=== PATIENT | female | born 1965 | race Caucasian/White ===

== ENCOUNTER 2016-07-05 19:43 | Inpatient (IN) | payer OTHER ==
[2016-07-05] MEDS ORDERED: Morphine INJ* 4 MG/ML 1 ML SYRINGE IV ONE (21:09)
--- NOTE | 2016-07-05 21:40 | ED ---
emma Valentin Timothy, scribed for German Paul MD on 07/05/16 at 2111 . Lower Extremity - HPI Summary HPI Summary: Lucila Orozco is a 51 yo female presenting to [facility] with 4/10 right hip pain after falling accidentally while walking home. Her right hip is unable to bear weight, and the pain increases with movement. Pt denies any PMHx. - History of Current Complaint Chief Complaint: EDExtremityLower Stated Complaint: FALL/RIGHT HIP PAIN Time Seen by Provider: 07/05/16 21:06 Hx Obtained From: Patient Mechanism Of Injury: Fall From A Standing Position Onset of Pain: Immediate Onset/Duration: Hours Severity Initially: Moderate Severity Currently: Moderate Pain Intensity: 4 Pain Scale Used: 0-10 Numeric Timing: Constant Location: Is Discrete @ - right hip Aggravating Factor(s): Movement, Weight Bearing Alleviating Factor(s): Elevation Able to Bear Weight: No - Allergies/Home Medications Allergies/Adverse Reactions: Allergies Allergy/AdvReac Type Severity Reaction Status Date / Time Sulfa Antibiotics Allergy Rash Verified 03/28/15 10:23 PMH/Surg Hx/FS Hx/Imm Hx Endocrine/Hematology History: Denies: Hx Diabetes, Hx Thyroid Disease Cardiovascular History: Denies: Hx Hypertension Respiratory History: Denies: Hx Asthma, Hx Chronic Obstructive Pulmonary Disease (COPD) GI History: Denies: Hx Ulcer - Cancer History Hx Chemotherapy: No Hx Radiation Therapy: No Infectious Disease History: No Infectious Disease History: Denies: Hx Hepatitis, Hx Human Immunodeficiency Virus (HIV), Traveled Outside the [place] in Last 30 Days - Family History Known Family History: Positive: Cardiac Disease, Hypertension Negative: Diabetes - Social History Alcohol Use: Weekly Hx Substance Use: Yes Substance Use Type: Reports: Marijuana Substance Use Comment - Amount & Last Used: "almost never." Hx Tobacco Use: No Smoking Status (MU): Never Smoked Tobacco Review of Systems Constitutional: Negative Eyes: Negative ENT: Negative Cardiovascular: Negative Respiratory: Negative Gastrointestinal: Negative Genitourinary: Negative Musculoskeletal: Other - right hip pain Skin: Negative Neurological: Negative Psychological: Normal All Other Systems Reviewed And Are Negative: Yes Physical Exam Triage Information Reviewed: Yes Vital Signs On Initial Exam: Initial Vitals Temp Pulse Resp BP Pulse Ox 98.7 F 82 14 113/69 100 07/05/16 19:44 07/05/16 19:44 04/12/17 19:44 07/05/16 19:44 07/05/16 19:44 Vital Signs Reviewed: Yes Appearance: Positive: Well-Appearing, Pain Distress - mild discomfort Skin: Positive: Warm Head/Face: Positive: Normal Head/Face Inspection Eyes: Positive: IKE ENT: Positive: Hearing grossly normal Neck: Positive: Supple Respiratory/Lung Sounds: Positive: Clear to Auscultation, Breath Sounds Present Cardiovascular: Positive: RRR Abdomen Description: Positive: Nontender, Soft Bowel Sounds: Positive: Present Musculoskeletal: Positive: Other - tender rt hip, no deformity, pain with movement Neurological: Positive: Sensory/Motor Intact, Alert, Oriented to Person Place, Time Psychiatric: Positive: Affect/Mood Appropriate Diagnostics - Vital Signs Vital Signs Temp Pulse Resp BP Pulse Ox 07/05/16 19:48 98.7 F 72 14 113/69 100 07/05/16 19:44 98.7 F 82 14 113/69 100 - Laboratory Result Diagrams: 07/05/16 21:45 Lab Statement: Any lab studies that have been ordered have been reviewed, and results considered in the medical decision making process. - Radiology R Hip XR Xray Interpretation: Positive (See Comments) - IMPRESSION: Impacted fracture right femoral neck. Radiology Interpretation Completed By: Radiologist Lower Extremity Course/Dx - Course Assessment/Plan: Lucila Orozco is a 89 yo female presenting to [facility] with 4/ 10 right hip pain S/P tripping and falling at 1945 tonight. In the ED she was given morphine to manage her pain. After review of her right hip X-ray suggesting an impacted fracture of the right femoral neck, and review of her lab work, as well as discussion with Dr. Barton and Dr. Leiva, she will be admitted to [facility] for further treatment. Her CXR is pending at this time. - Diagnoses Provider Diagnoses: Impacted fracture of right hip - Physician Notifications Discussed Care of Patient With: 2135 - Dr. Barton (Orthopedics) - discussed Pt condition, recommends admission of Pt for further treatment. 2138 - Dr. Leiva (hospitalist) - discussed Pt condition, accepts Pt for admission. Instructed by Provider To: Admit As Inpatient Discharge - Discharge Plan Condition: Stable Disposition: ADMITTED TO [facility] Discharge Disposition Comment: admission for further treatment The documentation as recorded by the scribemma brown Timothy accurately reflects the service I personally performed and the decisions made by me, German Paul MD.
[2016-07-05] MEDS ORDERED: Acetaminophen TAB* 325 MG PO PRN (21:42)
[2016-07-05] MEDS ORDERED: Ondansetron INJ* 2 MG/ML VIAL IV PRN (21:43)
[2016-07-05] MEDS ORDERED: Heparin VIAL(*) 5000 UNITS/ML VIAL (FIVE THOUSAND) SUBCUT ONE (21:44)
--- NOTE | 2016-07-05 21:48 | RAD ---
Indication: Right hip injury. 2 views of the right hip and an AP view the pelvis demonstrates an impacted fracture of the right femoral neck. Pelvic ring is intact. IMPRESSION: Impacted fracture right femoral neck.
[2016-07-05 22:09] LABS: BUN/Creatinine Ratio 12.2 (8-20); Calcium 9.6 mg/dL (8.6-10.3); EGFR African American 106.8 (>60); EGFR Non-African American 83.1 (>60); Potassium 3.7 mmol/L (3.5-5.0)
[2016-07-05] MEDS: oxyCODONE/Acetamin 5/325 MG* TAB PO PRN (22:19)
[2016-07-06] MEDS ORDERED: CMCS - Melatonin (NF) 3 MG TAB PO PRN (03:00)
--- NOTE | 2016-07-06 03:00 | HP ---
H&P (Free Text) History and Physical: PCP: Rosa Fowler MD Date/Time of Evaluation: 07/05/20162144 CC: R hip pain s/p mechanical fall HPI: Mrs Orozco is a 51YO healthy female who was walking along a path near her home with her daughter when she rolled her foot and fell taking the full brunt of the impact on her R hip. She had immediate severe pain in the R hip and was unable to stand. Bystanders assisted her back to her home where her neighbor insisted on bringing her to [facility] for evaluation. She denies prodromal symptoms, head injury, and LOC. There was no chest pain, SOB, light- headedness, spinning, or palpitations. Evaluation is notable for a non-displaced R femoral neck FX. Sanjiv Barton MD orthopedic surgery was consulted in ED & requested hospitalist services to admit with him taking charge in the AM. PMedHx Allergies Sulfa Antibiotics Allergy (Verified 03/28/15 10:23) Rash depression Ambulatory Orders Ascorbic Acid [Vitamin C] 1,000 mg PO 03/28/15 Cholecalciferol [Vitamin D] 1,000 unit PO 03/28/15 Cyanocobalamin TAB* [Vitamin B12 TAB*] 500 mcg PO DAILY 03/28/15 Escitalopram (NF) [Lexapro (NF)] 5 mg PO DAILY 03/28/15 Niacin 500 mg PO 03/28/15 [place]-3 Fatty Acids [Fish Oil] 1,000 mg PO 03/28/15 PSurgHx denies SocHx: no tobacco or recreational drugs, 6-7 alcoholic drinks weekly; teaches psychology at [employer]; full code status FamHx: positive for HTN, CAD, CVA ROS: as above, otherwise reviewed and all were negative Constitutional: NAD, normally developed, well-nourished white female vitals: Vital Signs Temp 36.7 C 07/06/16 00:13 Pulse 69 07/06/16 00:13 Resp 18 07/06/16 00:13 BP 115/57 07/06/16 00:13 Pulse Ox 99 07/06/16 00:13 Intake & Output 07/05/16 07/05/16 07/06/16 11:59 23:59 11:59 Weight 62.596 kg HEENM: atraumatic; sclera/conjunctiva: non-icteric/clear; hearing: intact; oropharynx: clear, mucosa moist Neck: soft tissue: non-tender; thyroid: normal Pulmonary: clear to auscultation bilaterally, good aeration, no accessory muscle use CV: RR/RR, normal S1S2, no carotid bruit, no jugular venous distention, 2+ B DP/ PT, no edema Abdominal: soft, non-distended, non-tender, no rebound/guarding/rigidity, normoactive bowel sounds, no hepatosplenomegaly or masses, no costovertebral angle tenderness Musculoskeletal: general: no gross deformity; gait: non-weight bearing RLE 2nd FX Integumental: normal appearance and texture of exposed skin Psychiatric orientation: AA&O to PPS affect: calm mood: pleasant eye contact: good content: reliable responses: timely insight: good Testing: Lab Results 07/05/16 07/05/16 Range/Units 21:45 21:45 INR (Anticoag Therapy) 0.93 (0.89-1.11) Sodium 138 (133-145) mmol/L Potassium 3.7 (3.5-5.0) mmol/L Chloride 103 (101-111) mmol/L Carbon Dioxide 28 (22-32) mmol/L Anion Gap 7 (2-11) mmol/L BUN 9 (6-24) mg/dL Creatinine 0.74 (0.51-0.95) mg/dL Est GFR ( Amer) 106.8 (>60) Est GFR (Non-Af Amer) 83.1 (>60) BUN/Creatinine Ratio 12.2 (8-20) Glucose 117 H (70-100) mg/dL Calcium 9.6 (8.6-10.3) mg/dL ECG, personally reviewed: ordered, pending CXR, personally reviewed: ordere, pending Impression: 51F presenting with R femoral neck FX s/p mechanical fall DIAGNOSIS & PLAN Primary R femoral neck FX s/p mechanical fall : pain control : Sanjiv Barton MD orthopedic surgery consulted by ED, will assume care of patient in AM : recommend DEXA scan of L hip & L-spine as outpatient post-recovery : supportive care Secondary depression : continue escitalopram Admission Rational: inpatient for surgical management of R femoral neck FX DVTp: recommend heparin SQ post-operatively Code Status: full
[2016-07-06] MEDS: Morphine INJ* 4 MG/ML 1 ML SYRINGE IV PRN ×3 (04:06→16:47)
[2016-07-06] MEDS: oxyCODONE/Acetamin 5/325 MG* TAB PO PRN ×3 (06:07→23:44)
[2016-07-06 08:51] LABS: Hematocrit 38 % (35-47); Hemoglobin 12.9 g/dl (12.0-16.0); Mean Corpuscular HGB Conc 34 g/dl (31-36); Mean Corpuscular Hemoglobin 31 pg (27-31); Mean Corpuscular Volume 90 fL (80-97); Mean Platelet Volume 9 um3 (7.4-10.4); Red Cell Distribution Width 13 % (10.5-15); White Blood Count 7.6 10^3/ul (3.5-10.8)
[2016-07-06] MEDS: Citalopram TAB* 10 MG PO SCH (09:43)
--- NOTE | 2016-07-06 11:32 | RAD ---
HISTORY: Permission testing, hip surgery COMPARISONS: None VIEWS:1: Single frontal portable view of the chest at 11:09 AM FINDINGS: LINES AND TUBES: None. CARDIOMEDIASTINAL SILHOUETTE: The cardiomediastinal silhouette is normal for portable technique. PLEURA: The costophrenic angles are sharp. No pleural abnormalities are noted. LUNG PARENCHYMA: The lungs are clear. ABDOMEN: The upper abdomen is clear. There is no subphrenic gas. BONES AND SOFT TISSUES: No bone or soft tissue abnormalities are noted. IMPRESSION: NO ACTIVE CARDIOPULMONARY DISEASE.
[2016-07-06] MEDS ORDERED: ceFAZolin 2 GM PREMIX(*) 2 GM/50 ML BAG IVPB ONE (12:57)
[2016-07-06] MEDS ORDERED: Midazolam* 1 MG/ML 5 ML VIAL (5 MG) ONE (13:00)
[2016-07-06] MEDS ORDERED: Bupivacaine 0.25% EPI 200,000* 30 ML SDV ONE (13:06)
[2016-07-06] MEDS ORDERED: Chloroprocaine 2%* 20 ML VIAL ONE (13:11)
[2016-07-06] MEDS ORDERED: fentaNYL* 50 MCG/ML 5 ML VIAL (250 MCG VIAL) ONE (13:23)
[2016-07-06] MEDS ORDERED: fentaNYL* 50 MCG/ML 2 ML VIAL (100 MCG VIAL) ONE ×3 (13:24→15:24)
[2016-07-06] MEDS ORDERED: Midazolam* 1 MG/ML 2 ML VIAL (2 MG) ONE (13:57)
[2016-07-06] MEDS ORDERED: Propofol* 0 MG/0 ML BTL ONE (14:09)
[2016-07-06] MEDS ORDERED: Propofol* 10 MG/ML 20 ML BTL IV PUSH ONE (14:09)
[2016-07-06] MEDS ORDERED: HYDROmorphone* 1 MG/ML 1 ML SYR IV PRN ×2 (14:21→14:48)
[2016-07-06] MEDS ORDERED: Ondansetron INJ* 2 MG/ML VIAL IV PRN ×2 (14:21→14:49)
[2016-07-06] MEDS ORDERED: oxyCODONE/Acetamin 5/325 MG* TAB PO PRN (14:21)
[2016-07-06] MEDS ORDERED: HYDROcodone/ACETAMIN 5-325 MG* 1 TAB PO PRN ×2 (14:21→14:48)
[2016-07-06] MEDS ORDERED: DiMENhydriNATE IV* 50 MG/ML VIAL IV PUSH PRN ×3 (14:21→14:47)
[2016-07-06] MEDS ORDERED: fentaNYL* 50 MCG/ML 2 ML VIAL (100 MCG VIAL) IV PRN (14:21)
--- NOTE | 2016-07-06 14:36 | RAD ---
INDICATION: RIGHT hip fracture. Percutaneous pinning COMPARISON: July 05, 2016 TECHNIQUE: 83.4 seconds fluoroscopy. FINDINGS: Spot images document placement of 3 cannulated lag screws across the subcapital mildly impacted femoral neck fracture. IMPRESSION: Procedural fluoroscopy. CPT II Codes: 6045F
[2016-07-06] MEDS ORDERED: oxyCODONE/Acetamin 5/325 MG* TAB ONE (15:24)
[2016-07-06] MEDS: ceFAZolin 1 GM in Dextrose (*) 1 GM/50 ML BAG IVPB SCH (22:27)
[2016-07-07] MEDS: ceFAZolin 1 GM in Dextrose (*) 1 GM/50 ML BAG IVPB SCH ×2 (05:27→13:21)
[2016-07-07] MEDS: oxyCODONE/Acetamin 5/325 MG* TAB PO PRN ×4 (05:31→20:49)
--- NOTE | 2016-07-07 08:18 | PN ---
Progress Note - Progress Note SOAP: Subjective: [51 y/o female s/p R femoral neck fracture s/p Pinning 07/[address] Barton. VSS , H&H stable. Sitting in chair comfortably, no complaints, pain well controlled with pain medication, VSS overnight. ] Objective: [General- Well appearing, NAD AO sitting in chair with MSK- SUrgical dressing intact, no drainage noted. minimal R LE edema, neg homans sign, + DF/PF. sensation grossly intact. ] Laboratory Results - last 24 hr 07/06/16 08:29 WBC 7.6 RBC 4.20 Hgb 12.9 Hct 38 MCV 90 MCH 31 MCHC 34 RDW 13 Plt Count 147 L MPV 9 Neut % (Auto) 63.3 Lymph % (Auto) 26.7 [place] % (Auto) 9.0 Eos % (Auto) 0.6 Baso % (Auto) 0.4 Absolute Neuts (auto) 4.8 Absolute Lymphs (auto) 2.0 Absolute Monos (auto) 0.7 Absolute Eos (auto) 0 Absolute Basos (auto) 0 Absolute Nucleated RBC 0 Nucleated RBC % 0.1 Vital Signs Temp 98.1 F 07/07/16 03:34 Pulse 75 07/07/16 03:34 Resp 18 07/07/16 05:31 BP 101/58 07/07/16 03:34 Pulse Ox 99 07/07/16 03:34 Intake & Output 07/06/16 07/07/16 07/07/16 18:59 06:59 18:59 Intake Total 360 1874 Output Total 1450 1050 Balance -1090 824 Intake: IV Fluids 300 961 LR 300 961 IVPB 73 ABX - CEFAZOLIN 73 Oral 60 840 Output: Urine 1200 Tan 250 1050 Assessment: [51 y/o female s/p R femoral neck fracture s/p Pinning 07/[address] Barton.] Plan: [- Continue toe touch weight bearing while ambulating, WBAT when standing - Continue PT - LIkely D/C tomorrow DVT prophylaxis- Heparin while inpatient. Active Medications Generic Name Dose Route Start Last Admin Trade Name Freq PRN Reason Stop Dose Admin Acetaminophen 650 mg 07/05/16 21:42 Tylenol Tab* PO Q6H PRN PAIN Aspirin 81 mg 07/07/16 09:00 Aspirin Low Dose Tab* PO DAILY CAN Citalopram Hydrobromide 10 mg 07/06/16 09:00 07/06/16 09:43 Celexa Tab* PO Not Given DAILY [facility] Protocol Heparin Sodium (Porcine) 5,000 units 07/07/16 09:00 Heparin Vial(*) SUBCUT Q12HR CAN Cefazolin Sodium/Dextrose 1 gm in 50 mls @ 200 mls/hr 07/06/16 21:00 05:27 Kefzol 1 Gm In Dextrose Duplex (*) IVPB 07/07/16 13:14 200 mls/hr Q8H CAN Administration Lactated Ringer's 1,000 mls @ 75 mls/hr 07/07/16 03:00 07/07/16 05:32 Lactated Ringers 1000 Ml Bag* IV 75 mls/hr .PER RATE CAN Administration Melatonin 3 mg 07/06/16 03:00 Melatonin (Nf) PO BEDTIME PRN Sleep Protocol Morphine Sulfate 4 mg 07/05/16 21:41 07/06/16 16:47 Morphine Inj (Syringe)* IV 4 mg Q4H PRN Administration PAIN Ondansetron HCl 4 mg 07/05/16 21:43 07/07/16 05:48 Zofran Inj* IV 4 mg Q4H PRN Administration nausea Oxycodone/Acetaminophen 1 tab 07/05/16 21:43 Percocet 5/325 Tab* PO Q4H PRN PAIN Oxycodone/Acetaminophen 2 tab 07/05/16 21:43 07/07/16 05:31 Percocet 5/325 Tab* PO 2 tab Q4H PRN Administration PAIN
[2016-07-07] MEDS: Aspirin Low Dose CHEW TAB* 81 MG PO SCH (08:25)
[2016-07-07] MEDS: Citalopram TAB* 10 MG PO SCH (08:25)
[2016-07-07] MEDS: Heparin VIAL(*) 5000 UNITS/ML VIAL (FIVE THOUSAND) SUBCUT SCH ×2 (08:27→20:52)
--- NOTE | 2016-07-07 09:53 | OP ---
DATE OF OPERATION: 07/06/16 - ROOM #[id number] DATE OF : 67 SURGEON: Frankie Barton MD ANESTHESIOLOGIST: Palomo Sanchez MD ANESTHESIA: Spinal and sedation. PRE-OP DIAGNOSIS: Valgus impacted right hip fracture. POST-OP DIAGNOSIS: Valgus impacted right hip fracture. OPERATIVE PROCEDURE: Percutaneous pinning, right hip fracture. ESTIMATED BLOOD LOSS: Less than 10 cc. COMPLICATIONS: None. SUMMARY: Mrs. Orozco is a 51-year-old female who had fallen yesterday evening landing hard directly on the right hip. She had sustained a valgus impacted hip fracture and I discussed with her that a closed reduction percutaneous pinning should work well to hold the femoral head in place while this heals. Risks of surgery such as infection, scar formation, stiffness, DVT, pulmonary embolism, hardware failure, nonunion, and eventual AVN of the femoral head were some of the risks discussed and she had wished to proceed. DESCRIPTION OF PROCEDURE: The patient was brought to the OR and spinal anesthesia was introduced. Tan catheter was placed. She was then transferred to the fracture table and right leg was placed on to the traction device, but no traction was applied. Left leg was placed into the leg martin and her adductors were nice and relaxed. C-arm was brought in and used to make sure I could get a good visualization of the femoral head on both AP and lateral planes. Right hip area was prepped and then dapped. Skin over the incisional area was infiltrated using 0.25% Marcaine with epinephrine and a 1 cm skin incision was made. Straight snap was used to penetrate through the IT band and then spread so that I would have a track though which to place the guidewires and the screws. First guidewire was placed and adjusted until I liked the starting position and this was drilled into the cortex a little bit. Then this was angled on the AP view until it looked like I had a nice shot coming up through the neck and into the head. Coming to the lateral view, however, I could see where I was aiming a little too posterior and this needed to be backed up a little bit and adjusted and this was adjusted until it looked very good on the lateral view. Coming back to the AP view this was now a little bit off and again adjusted and this was done until I finally had the wire in a perfect position. Screw was measured and a 105 short thread screw was called for. Drill was run over the guidewire and the screw was placed. Nice bite was obtained. In a similar fashion second guidewire and then screw was placed and then a third. Final C-arm pictures were then saved. Wound was irrigated using a bulb syringe and one subcutaneous stitch was placed. Two 3-0 nylon stitches were placed into the skin and a sterile dressing was applied. The patient was then transferred to the hospital bed and was stable on transfer to the recovery room. [id number]/[facility] #: [id number] MTDD
[2016-07-07] MEDS ORDERED: Docusate CAP* 100 MG PO PRN (11:11)
[2016-07-07] MEDS ORDERED: Magnesium Hydroxide LIQ* 30 ML UDC PO PRN (11:12)
[2016-07-07] MEDS ORDERED: Bisacodyl SUPP* 10 MG SUPP PR PRN (11:12)
[2016-07-07] MEDS: Morphine INJ* 4 MG/ML 1 ML SYRINGE IV PRN (22:04)
[2016-07-08] MEDS: oxyCODONE/Acetamin 5/325 MG* TAB PO PRN ×2 (04:20→08:57)
[2016-07-08] MEDS: Aspirin Low Dose CHEW TAB* 81 MG PO SCH (08:52)
[2016-07-08] MEDS: Citalopram TAB* 10 MG PO SCH (08:52)
[2016-07-08] MEDS: Heparin VIAL(*) 5000 UNITS/ML VIAL (FIVE THOUSAND) SUBCUT SCH (08:53)
--- NOTE | 2016-07-08 09:32 | PN ---
Progress Note - Progress Note SOAP: Subjective: [Pt. doing well. Pain managed with PO meds. Denies CP/SOB/Dizziness. Has been TTWB RLE. Feels ready to go home.] Objective: [A and O x 3, NAD R hip dressing changed. Incision benign. Distal gross motor/NV status intact. Calf soft/NT Vital Signs: Temp Pulse Resp BP Pulse Ox 98.4 F 71 18 102/64 97 07/08/16 04:04 07/08/16 04:04 07/08/16 08:57 07/08/16 04:04 07/08/16 04:04 ] Assessment: [51 y/o female s/p R femoral neck percutaneous pinning POD # 2 doing well] Plan: [Con't TTWB R LE Percocet for pain management (script sent to pharmacy) D/C home F/U with Dr. Barton in 2 weeks for suture removal.]
[2016-07-08 10:17] VITALS: BP 95/47
--- NOTE | 2016-07-09 00:25 | DS ---
DISCHARGE SUMMARY: DATE OF ADMISSION: 07/05/16 DATE OF DISCHARGE: 07/08/16 ADMITTING DIAGNOSIS: Right femoral neck fracture. DISCHARGE DIAGNOSIS: Status post right hip pinning. PROCEDURE: Right hip fracture pinning. CONSULT: Physical Therapy. BRIEF HISTORY: Ms. Orozco is a 51-year-old female, who fell while walking along the path near her home on 07/05/16, she landed on her right hip. She had immediate severe pain in the right hip and was unable to stand. She was transported by a neighbor to [facility] emergency department for evaluation, where x- rays revealed a right hip femoral neck fracture. She subsequently underwent a right hip pinning with Dr. Barton on 07/06/16. HOSPITAL COURSE: Ms. Orozco was admitted to [facility] on . She underwent an uncomplicated right hip pinning with Dr. Barton on . Postoperatively, she recovered on the short-stay surgical unit. Her pain was well controlled with Percocet and she was toe-touch weightbearing on her right lower extremity. Her vital signs and labs remained stable. She advanced appropriately with physical therapy. Her DVT prophylaxis was heparin while inpatient. By postoperative day #2, she was orthopedically and medically stable for discharge home with services. PHYSICAL EXAMINATION: General: On examination, the patient is noted to be calm and cooperative, in no acute distress. She is alert and oriented x3. Vital Signs: On day of discharge, temperature 98.4 degrees Fahrenheit, pulse rate 71, respiratory rate 18, O2 saturation 97% on room air, blood pressure 102/ 64. Extremities: Examination of the right hip and lower extremity demonstrates a dressing overlying the right hip, which is clean, dry, and intact. Her thigh is minimally swollen, but compressible. Distally, she has +2 dorsalis pedis pulse, 5/5 ankle dorsiflexion, plantarflexion, and strength. Calf is soft and nontender. Sensation is intact to light touch. DIAGNOSTIC STUDIES/LAB DATA: Radiographs: Postoperative radiographs of the right hip demonstrate satisfactory reduction of the fracture with hardware in appropriate placement. DISCHARGE MEDICATIONS: 1. Ascorbic acid 1000 mg p.o. daily. 2. Cholecalciferol 1000 units daily. 3. Cyanocobalamin 500 mcg daily. 4. Lexapro 5 mg daily. 5. Niacin 500 mg daily. 6. [place]-3 fatty acids 1000 mg daily. 7. Percocet 5/325, 1 to 2 tabs q.4 to 6 hours p.r.n. pain. 8. Aspirin 81 mg daily x2 weeks. CONDITION ON DISCHARGE: Stable. DISCHARGE INSTRUCTIONS: Ms. Orozco is a 51-year-old female postoperative day #2, status post right femoral neck pinning, which was uncomplicated. She is orthopedically and medically stable to be discharged home. She has stable vital signs and labs. She will restart home medications. She will remain toe- touch weightbearing on right lower extremity. She will take Percocet for pain control and aspirin 81 mg for DVT prophylaxis. She will take Colace up to 3 times a day for constipation. She will follow up with Dr. Barton in approximately 2 weeks for incision check and suture removal. She was instructed to call Dr. Barton or go immediately to the emergency room should she develop any new fevers, chills, incision pain, redness, or drainage. She was instructed to go immediately to the ER should she develop chest pain or shortness of breath. JAYCOB MARTIN [id number]/[facility] #: [id number] ASHLEY
== END 2016-07-08 11:50 | disposition home health service (06) | DRG 482 ==
LOC: ED 19:43 → SSU 21:40
PROVIDERS: ADMIT Hospitalist; ATTEND Orthopaedic Surgery
PROC: 0QS634Z Reposition Right Upper Femur with Internal Fixation Device, Percutaneous Approach (ICD-10-PCS; principal; 2016-07-05)
DX: S72.001A Fracture of unspecified part of neck of right femur, initial encounter for closed fracture (principal); F32.9 Major depressive disorder, single episode, unspecified; Z88.2 Allergy status to sulfonamides; Z82.49 Family history of ischemic heart disease and other diseases of the circulatory system; Y92.009 Unspecified place in unspecified non-institutional (private) residence as the place of occurrence of the external cause; W01.0XXA Fall on same level from slipping, tripping and stumbling without subsequent striking against object, initial encounter; Y93.01 Activity, walking, marching and hiking; Z82.3 Family history of stroke; M21.051 Valgus deformity, not elsewhere classified, right hip; Z79.82 Long term (current) use of aspirin
CPT/HCPCS: 36415; 71010; 76000; 80048; 85025; 85610; 93005; A9270-GY; C1713; J0690; J1644; J2250; J2270; J2400; J2405; J2704; J3010